=== PATIENT | male | born 2000 | race Hispanic/Latino ===

== ENCOUNTER 2023-03-29 02:57 | Inpatient (IN) | payer MEDICAID, OTHER ==
[~2023-03-29] VITALS: Ht 170.2 cm; Wt 65.8 kg
[2023-03-29] MEDS ORDERED: MORPHINE 2 MG SYG IVP ONE (03:30)
[2023-03-29] MEDS ORDERED: ONDANSETRON 4MG INJ IVP ONE (03:30)
[2023-03-29] MEDS ORDERED: LACTATED RINGERS 1000ML IV SCH (03:30)
[2023-03-29 03:37] LABS: BASOPHILS # (AUTO) 0.03 K/uL (0.00-0.20); BASOPHILS % (AUTO) 0.2 % (0.0-5.0); CREATININE 1.1 mg/dL (0.5-1.5); EOSINOPHILS # (AUTO) 0.09 K/uL (0.00-0.70); EOSINOPHILS % (AUTO) 0.6 % (0.0-8.0); HEMATOCRIT 45.6 % (42-54); LYMPHOCYTES % (AUTO) 7.2 % (21.0-51.0); MEAN CORPUSCULAR HEMOGLOBIN 31.3 pg (27.0-33.0); MEAN CORPUSCULAR HGB CONC 36.4 g/dL (32.0-36.0); MEAN CORPUSCULAR VOLUME 85.9 fL (79-99); MONOCYTES # (AUTO) 1.5 K/uL (0.1-1.0); MONOCYTES % (AUTO) 10.9 % (3.0-13.0); NEUTROPHILS # (AUTO) 11.3 K/uL (1.8-7.7); NEUTROPHILS % (AUTO) 80.4 % (40.0-77.0); PLATELET COUNT (AUTO) 238 K/uL (130-400); POTASSIUM 3.6 mmol/L (3.5-5.1); RED BLOOD CELL COUNT(AUTO) 5.31 MIL/uL (4.50-6.20); RED CELL DISTRIBUTION WIDTH 12.1 % (11.0-15.5); WHITE BLOOD COUNT (AUTO) 14.1 K/uL (4.8-10.8)
[2023-03-29 03:42] LABS: ALBUMIN 4.7 g/dL (3.5-5.0); BILIRUBIN,TOTAL 1.1 mg/dL (0.2-1.0); TOTAL PROTEIN, SERUM 8.6 g/dL (6.0-8.3)
[2023-03-29 03:52] LABS: WBC MORPHOLOGY CONSISTENT W/DIFF
[2023-03-29 05:35] LABS: ADD UA MICROSCOPIC NO; APPEARANCE,URINE CLEAR (CLEAR); BILIRUBIN,URINE NEGATIVE (NEGATIVE); COLOR,URINE LIGHT-YELLOW (YELLOW); GLUCOSE, URINE (UA) NEGATIVE (NEGATIVE); KETONES,URINE 40 mg/dL (NEGATIVE); LEUKOCYTE ESTERASE ,URINE NEGATIVE Leu/uL (NEGATIVE); NITRATE,URINE NEGATIVE (NEGATIVE); OCCULT BLOOD,URINE NEGATIVE (NEGATIVE); PH,URINE 6.5 (5.0-8.0); PROTEIN,URINE NEGATIVE (NEGATIVE); UROBILINOGEN,URINE 0.2 mg/dL (0.2-1.0)
[2023-03-29] MEDS ORDERED: IOHEXOL 350 MG/ML 100ML INFUS..BTL IV ONE (05:49)
[2023-03-29] MEDS ORDERED: ACETAMINOPHEN 325 MG TAB PO PRN (09:30)
[2023-03-29] MEDS ORDERED: ONDANSETRON 4MG INJ IVP PRN (09:30)
[2023-03-29] MEDS ORDERED: MORPHINE 2 MG SYG IVP PRN ×2 (09:30→11:30)
[2023-03-29] MEDS: LACTATED RINGERS 1000ML 1,000 ML IV SCH ×2 (11:36→21:02)
[2023-03-29] MEDS: ZOSYN 3.375GM +NS 50ML IV SCH ×2 (11:36→20:56)
[2023-03-29 11:45] LABS: CHOLESTEROL 113 mg/dL (<200); HDL CHOLESTEROL 66 mg/dL (29-71); LDL DIRECT 48 mg/dL (0-99); TRIGLYCERIDES 22 mg/dL (30-200)
[2023-03-29 20:00] VITALS: BP_SYST 119; BP_SYST 125; BP_DIAS 57; BP_DIAS 91; PULSE 78; PULSE 82; RESP 16; RESP 20
[2023-03-30] VITALS: BP 119/75; PULSE 71; RESP 20
[2023-03-30] MEDS: ZOSYN 3.375GM +NS 50ML IV SCH ×2 (03:18→11:03)
[2023-03-30] MEDS: LACTATED RINGERS 1000ML 1,000 ML IV SCH (03:19)
[2023-03-30 04:00] VITALS: BP 111/50; PULSE 70; RESP 18
[2023-03-30 08:00] VITALS: BP 109/62; PULSE 78; RESP 18
[2023-03-30 08:10] VITALS: O2SAT 97
[2023-03-30] MEDS ORDERED: ENOXAPARIN SODIUM 40 MG/0.4 ML SYRINGE SQ SCH (09:00)
[2023-03-30] MEDS ORDERED: PANTOPRAZOLE 40 MG/VIAL IVP SCH (09:00)
[2023-03-30 09:50] LABS: BASOPHILS # (AUTO) 0.03 K/uL (0.00-0.20); BASOPHILS % (AUTO) 0.5 % (0.0-5.0); EOSINOPHILS # (AUTO) 0.12 K/uL (0.00-0.70); EOSINOPHILS % (AUTO) 2.2 % (0.0-8.0); HEMATOCRIT 41.9 % (42-54); IMMATURE GRANULOCYTE ABSOLUTE 0.01 K/uL (0-1); LYMPHOCYTES # (AUTO) 1.3 K/uL (1.0-4.8); MEAN CORPUSCULAR HEMOGLOBIN 30.7 pg (27.0-33.0); MEAN CORPUSCULAR HGB CONC 34.8 g/dL (32.0-36.0); MONOCYTES # (AUTO) 0.7 K/uL (0.1-1.0); MONOCYTES % (AUTO) 12.2 % (3.0-13.0); NEUTROPHILS # (AUTO) 3.3 K/uL (1.8-7.7); NEUTROPHILS % (AUTO) 60.9 % (40.0-77.0); PLATELET COUNT (AUTO) 207 K/uL (130-400); RED BLOOD CELL COUNT(AUTO) 4.76 MIL/uL (4.50-6.20); RED CELL DISTRIBUTION WIDTH 12.3 % (11.0-15.5); WHITE BLOOD COUNT (AUTO) 5.5 K/uL (4.8-10.8)
[2023-03-30 12:00] VITALS: BP 118/59; PULSE 70; RESP 18
== END 2023-03-30 12:45 | disposition home or self-care (01) | DRG 391 ==
LOC: EDH 02:57 → EDHIP 02:58 → 4BH 21:45
PROVIDERS: ADMIT Internal Medicine; ATTEND Internal Medicine
DX: K52.9 Noninfective gastroenteritis and colitis, unspecified (principal); K85.90 Acute pancreatitis without necrosis or infection, unspecified; F41.9 Anxiety disorder, unspecified
CPT/HCPCS: 36415; 74177; 80053; 80061; 81003; 83690; 84145; 85025; 87040; 96374; 96375; C9113; G0378; J1650; J2270; J2405; J2543; Q9967